=== PATIENT | female | born 1960 | race Caucasian/White ===

== ENCOUNTER → 2016-12-11 | Outpatient (CLI) | payer OTHER | END | disposition home or self-care (01) | LOC: HKI 08:41 | PROVIDERS: ATTEND Orthopaedic Surgery | DX: M22.42 Chondromalacia patellae, left knee (principal); M22.41 Chondromalacia patellae, right knee; M17.0 Bilateral primary osteoarthritis of knee | CPT/HCPCS: G0463 ==

== ENCOUNTER → 2017-02-05 | Outpatient (CLI) | payer OTHER ==
--- NOTE | 2017-02-05 10:23 | PN ---
Date/Time of Note Date/Time of Note DATE: 02/05/17 TIME: 10:17 Assessment/Plan VTE Prophylaxis VTE Prophylaxis Intervention: ambulation Assessment/Plan Assessment/Plan ASSESSMENT: 1. Right knee pain after fall, rule out nondisplaced patella fracture 2. Left knee pain, rule out medial meniscus tear 3. Bilateral patellofemoral chondromalacia PLAN. She does appear to have symptoms consistent with patellofemoral syndrome bilaterally. She also has some early degenerative changes of the medial and patellofemoral compartments. She did sustain a fall 3 weeks ago and has been having worsening pain since that time. Additionally she is tender over the patella on her right knee and a nondisplaced patella fracture should be ruled out. She is also tender along the medial joint line of her left knee, therefore we should rule out a medial meniscus tear of the left knee. We will obtain MRIs of both knees to rule out a right knee patella fracture and left knee medial meniscus tear. After the MRI results, we will evaluate them and discuss further treatment plan. It is conceivable to try some more physical therapy with either cortisone or Visco supplementation depending on the MRI results. Subjective 24 Hr Interval Summary Free Text/Dictation The patient presents today for a follow-up evaluation on her bilateral knees. We last saw her approximately 6 months ago at which time she was diagnosed with chondromalacia of the patella and physical therapy was recommended. She is doing physical therapy at in [place], but recently aggravated both of her knees. She states 3 weeks ago, she sustained a mechanical trip and fall, landing directly on the right knee. Additionally she has been having some medial sided left knee pain with night symptoms that are waking her up. She does describe mechanical symptoms of her left knee including catching and popping. She states she has been trying [id number] anti-inflammatories and continuing to do physical therapy, but has worsening symptoms bilaterally since her fall. She presents today for a follow-up evaluation on her bilateral knees. Exam/Review of Systems Exam On exam today, she is alert and oriented 4, and in no acute distress. She is ambulating without any assistive devices. Exam of the right knee demonstrates 2 + patellofemoral crepitus. Range of motion is 0-120. She has tenderness to palpation directly over the patella, predominately over the inferior pole. Catina's is negative. There is no medial or lateral joint line tenderness. She is able to do a straight leg raise. Varus and valgus forces are stable. She has a 1+ Mayra's. She is neurovascularly intact distally. Exam of the left knee demonstrates a trace effusion. Range of motion is 0-120 . She has 3+ medial joint line tenderness. There is no lateral joint line tenderness. She is a positive Catina's it does elicit pain. Varus and valgus forces are stable. She has 1+ Mayra's and anterior drawer. Compartments are otherwise soft. Neurovascular status is intact distally. IMAGING: X-rays of bilateral knees were obtained today and reviewed by me. They do demonstrate some lateral tilting of the patellas on the sunrise view bilaterally. There is early osteophyte formation along the patellofemoral compartment as well as medial compartments bilaterally. The joint spaces in general are well maintained. There are no acute obvious fractures or dislocations identified. ELISHA QUEZADA PA-C Feb 05, 2017 10:23
--- NOTE | 2017-02-05 17:28 | RADRPT ---
PROCEDURE: XR Knees. CLINICAL INDICATION: Bilateral knee pain. TECHNIQUE: Total of eight views. Weightbearing frontal, oblique, and lateral views of the both kn ees. Patellar views of both knees. COMPARISON: Left knee radiographs dated 04/17/2016. FINDINGS: There is no fracture or dislocation. The soft tissues are normal. There are degenerative changes with osteophytes arising from all 3 joint compartment margins bilater ally. There is bilateral medial joint compartment narrowing. There is no lytic or blastic lesion. There is no radiopaque foreign body. IMPRESSION: 1. Moderate osteoarthrosis of both knees. 2. No acute abnormality. RPTAT: QQ .Gray Ann MD, MD Date Time Electronically viewed and signed by .Gray Ann MD, on 02/05/2017 17:27 .R/
== END | disposition home or self-care (01) ==
LOC: HKI 08:49
PROVIDERS: ATTEND Orthopaedic Surgery
DX: M25.561 Pain in right knee (principal); M25.562 Pain in left knee; M22.42 Chondromalacia patellae, left knee; M22.41 Chondromalacia patellae, right knee
CPT/HCPCS: 73564; G0463

== ENCOUNTER → 2017-02-28 | Outpatient (CLI) | payer OTHER ==
--- NOTE | 2017-02-28 14:30 | PN ---
Date/Time of Note Date/Time of Note DATE: 02/28/17 TIME: 14:25 Outpatient Progress Note HPI The patient presents today for a follow-up evaluation on her bilateral knees. She had MRIs of both knees done recently. Her right knee MRI showed some chondromalacia the patella with some early degenerative changes. Her left knee show the same but also had a concomitant medial meniscus tear. We talked at length regarding her MRI results and she would like to hold off on any arthroscopic surgery at this point. We discussed some conservative treatment options including doing nothing, NSAIDs, cortisone, and physical therapy. She elected to come in for a cortisone injection to her left knee begin physical therapy for both of her knees. She has been having nightly symptoms to left knee that have been waking her up at night. She understands that if the cortisone wears off and her symptoms return, she may need to consider arthroscopic partial meniscectomy with Dr. Varghese. She presents today for a follow-up evaluation on her bilateral knees and a left knee cortisone injection. Physical Exam On exam today, she is alert and oriented 4, and in no acute distress. Exam of bilateral knees demonstrates 2+ tenderness along the medial and lateral patellar facets. She has 2+ patellofemoral crepitus. Range of motion bilaterally is equal and is 0-130 she has pinpoint tenderness palpation along the medial joint line of left knee. Catina's is equivocal on the left knee. Homans sign is negative bilaterally. Compartments otherwise soft bilaterally she is neurovascularly intact distally. Assessment/Plan Assessment: 1. Bilateral patellofemoral syndrome 2. Left knee medial meniscus tear Plan: The patient received a cortisone injection to her left knee today without adverse event. She is also to begin physical therapy for bilateral patellofemoral syndrome. She understands that at some point if the cortisone injection wears off or begins to hurt her more, she may need to consider an arthroscopic partial meniscectomy. She will do physical therapy and follow-up with us on an as-needed basis. If her symptoms worsen she will follow-up with Dr. Varghese at [facility]. Procedure: The procedure was fully explained to the patient and informed consent was obtained prior to the start of procedure. The area was prepped and draped in sterile fashion using Betadine. Ethyl chloride was used to anesthetize the superolateral aspect of the left knee and a mixture of 2 cc of Kenalog with 8 cc of lidocaine 1% was injected intra-articularly. Sterile dressing was then applied. The patient tolerated procedure well. All questions and concerns were addressed at the time of procedure ELISHA QUEZADA PA-C Feb 28, 2017 14:30
== END | disposition home or self-care (01) ==
LOC: HKI 13:36
PROVIDERS: ATTEND Orthopaedic Surgery
DX: M22.2X2 Patellofemoral disorders, left knee (principal); M22.2X1 Patellofemoral disorders, right knee; S83.242D Other tear of medial meniscus, current injury, left knee, subsequent encounter; X58.XXXD Exposure to other specified factors, subsequent encounter
CPT/HCPCS: 20610